=== PATIENT | female | born 1975 | race Caucasian/White ===

== ENCOUNTER 2018-01-31 15:14 | Emergency (ER) | payer BC ==
[2018-01-31 15:35] VITALS: BP 133/75
[2018-01-31] MEDS ORDERED: Naproxen TAB* 250 MG PO ONE (15:47)
--- NOTE | 2018-01-31 16:09 | RAD ---
HISTORY: pain swelling s/p fall down stairs COMPARISONS: None VIEWS: 3 , Frontal, lateral, and oblique views of the right ankle FINDINGS: BONE DENSITY: Normal. BONES: There is no displaced fracture. JOINTS: There is no arthropathy. ALIGNMENT: There is no dislocation. SOFT TISSUES: There is soft tissue swelling most pronounced along the lateral malleolus. OTHER FINDINGS: None. IMPRESSION: SOFT TISSUE SWELLING. NO ACUTE OSSEOUS INJURY. IF SYMPTOMS PERSIST, RECOMMEND REPEAT IMAGING.
--- NOTE | 2018-01-31 16:21 | UC ---
Lower Extremity/Ankle HPI - HPI Summary HPI Summary: 42-year-old female presents with right ankle pain and swelling. States she was descending stairs, missed the next last stair, and fell causing inversion injury to her right ankle. States she felt a pop at time of injury. She denies hitting her head or any loss of consciousness. Does report some mild low back pain. She has not been able to walk or bear weight on the ankle since the injury. Denies any numbness or tingling to the foot or toes. - History of Current Complaint Chief Complaint: UCLowerExtremity Stated Complaint: ANKLE INJURY Time Seen by Provider: 01/31/18 15:41 Hx Obtained From: Patient Hx Last Menstrual Period: 01/29/18 Onset/Duration: Sudden Onset Severity Currently: Moderate Pain Intensity: 7 Able to Bear Weight: No - Allergies/Home Medications Allergies/Adverse Reactions: Allergies Allergy/AdvReac Type Severity Reaction Status Date / Time No Known Allergies Allergy Verified 01/31/18 15:36 PMH/Surg Hx/FS Hx/Imm Hx Previously Healthy: Yes - denies significant past medical history - Surgical History Surgical History: Yes Surgery Procedure, Year, and Place: [facility] - 1994 [place]. D&C , 01/2013, [facility] [place]. CERVICAL POLYPECTOMY 01/2013. 06/20/14, LEFT URETERAL STENT, [facility] [place] - Family History Family History: Noncontributory - Social History Occupation: Employed Full-time Lives: With Family Alcohol Use: Occasionally Alcohol Amount: 2-3 PER WEEK Substance Use Type: None Smoking Status (MU): Never Smoked Tobacco Have You Smoked in the Last Year: No Review of Systems Constitutional: Negative Skin: Bruising - Right lateral ankle Respiratory: Negative Cardiovascular: Negative Neurovascular: Negative Musculoskeletal: Arthralgia - Right lateral ankle with swelling Is Patient Immunocompromised?: No All Other Systems Reviewed And Are Negative: Yes Physical Exam Triage Information Reviewed: Yes Appearance: Well-Appearing, Well-Nourished, Pain Distress - Mild to moderate pain Vital Signs: Initial Vital Signs Temp 99 F 01/31/18 15:30 Pulse 75 01/31/18 15:30 Resp 15 01/31/18 15:30 BP 133/75 01/31/18 15:30 Pulse Ox 100 01/31/18 15:30 Vital Signs Reviewed: Yes Neck: Positive: Supple, Nontender Respiratory: Positive: Lungs clear, Normal breath sounds Cardiovascular: Positive: RRR, No Murmur, Pulses Normal, Brisk Capillary Refill Abdomen Description: Positive: Nontender, No Organomegaly, Soft. Negative: CVA Tenderness (R), CVA Tenderness (L), Distended, Guarding Bowel Sounds: Positive: Present Musculoskeletal: Positive: Strength Intact, ROM Limited @ - Right ankle due to pain, Other: - Tenderness and swelling over the lateral malleolus. No CTLS spine tenderenss. Neurological: Positive: Alert, Other: - Sensation intact distally. Skin: Positive: Other - Ecchymosis over the right lateral malleolus Diagnostics - Radiology No standard instances Xray Interpretation: No Acute Changes Radiology Interpretation Completed By: Radiologist - SOFT TISSUE SWELLING. NO ACUTE OSSEOUS INJURY. Lower Extremity Course/Dx - Course Course Of Treatment: 42-year-old female presents with right ankle pain after slipping and falling down stairs. Exam revealed tenderness and swelling of the right lateral malleolus but no other injury. X-ray showed soft tissue swelling but no acute fracture or dislocation. Patient was placed in a stirrup splint and given crutches. Recommend nonweightbearing for next 2 days with slow progression to weight-bear as tolerated as well as symptomatic treatment including RICE, and naproxen twice a day as needed for pain. She is to follow- up with her primary care provider for recheck. Patient verbalizes understanding and agrees with plan of care. - Differential Dx/Diagnosis Differential Diagnosis/HQI/PQRI: Contusion, Fracture (Closed), Sprain Provider Diagnoses: Right ankle sprain Discharge - Sign-Out/Discharge Documenting (check all that apply): Patient Departure All imaging exams completed and their final reports reviewed: No Studies - Discharge Plan Condition: Stable Disposition: HOME Prescriptions: Naproxen [Naproxen 500 mg tab] 500 mg PO Q12HR #30 tablet Patient Education Materials: Ankle Sprain (ED), Crutch Instructions (ED), Ankle Stirrup Splint (ED) Referrals: Giles Morales MD [Primary Care Provider] - 2 Weeks (Within 2 weeks for recheck.) Additional Instructions: The x-ray was performed in the clinic today was not needed for fracture. I suspect that you have a bad sprain of your ankle. Use the stirrup splint that was applied in the clinic today until you follow up with your primary care provider. You may remove at bedtime and to shower but should wear at all other times. Take naproxen 1 tablet every 12 hours as needed for pain. Be sure to take this with food. Rest the ankle as much as possible. We have provided she was some crutches to use. You should be nonweightbearing for the next couple of days. You may then start to slowly bear weight as tolerated. Apply ice to the affected area for 15-20 minutes 3-4 times a day to help reduce swelling. Keep the foot elevated in order to reduce swelling. Follow-up with your primary care provider in the next 2 weeks for recheck especially if symptoms are not improving. Seek immediate medical attention in the emergency room if you have pain that is not managed with the pain medication, have increased swelling, or develop any numbness or tingling in the foot or toes. - Billing Disposition and Condition Condition: STABLE Disposition: Home
== END 2018-01-31 16:40 | disposition home or self-care (01) ==
LOC: UCEAST 15:14
DX: S93.401A Sprain of unspecified ligament of right ankle, initial encounter (principal); W10.9XXA Fall (on) (from) unspecified stairs and steps, initial encounter; Y92.9 Unspecified place or not applicable; M54.5 Low back pain
CPT/HCPCS: 99212; A9270-GY; G0463

== ENCOUNTER 2021-09-05 10:48 | Inpatient (IN) ==
[2021-09-05] MEDS ORDERED: NS 0.9% 1000 ml BAG 1,000 ML IV ONE (11:01)
[2021-09-05 11:14] LABS: ABS Eosinophils 0.1 10^3/ul (0-0.6); ABS Lymphocytes 1.7 10^3/ul (1.0-4.8); ABS Monocytes 0.6 10^3/ul (0-0.8); ABS Neutrophils 2.1 10^3/ul (1.5-7.7); Eosinophil % 2.4 %; Hematocrit 41 % (35-47); Hemoglobin 13.7 g/dL (12.0-16.0); Lymphocyte % 37.1 %; Mean Corpuscular HGB Conc 33 g/dL (31-36); Mean Corpuscular Hemoglobin 31 pg (27-31); Mean Corpuscular Volume 92 fL (80-97); Mean Platelet Volume 8.9 fL (7.4-10.4); Platelet Count 197 10^3/uL (150-450); Red Blood Count 4.47 10^6 /uL (3.70-4.87); Red Cell Distribution Width 13 % (10-15); White Blood Count 4.5 10^3/uL (3.5-10.8)
[2021-09-05] MEDS ORDERED: Iodixanol (CONTRAST) 320 MG/ML 100 ML SDV IV ONE (11:19)
[2021-09-05 11:28] LABS: Activated Partial Thrombo Time 36.5 seconds (26.0-38.0); INR 1.04 (0.86-1.15)
[2021-09-05 11:53] LABS: Albumin 4.3 g/dL (3.2-5.2); Albumin/Globulin Ratio 1.3 (1-3); Calcium 9.8 mg/dL (8.6-10.3); Globulin 3.4 g/dL (2-4); HDL Cholesterol 51.4 mg/dL; Potassium 3.8 mmol/L (3.5-5.0); Total Bilirubin 0.5 mg/dL (0.2-1.0); Total Protein 7.7 g/dL (6.4-8.9)
[2021-09-05 12:36] LABS: High Sensitivity Troponin 1 Hr 3 pg/mL (<15)
[2021-09-05 18:45] LABS: TSH Ultra Thyroid Stim Horm 0.94 mcIU/mL (0.34-5.60)
[2021-09-05 19:14] LABS: Fibrinogen 423.4 mg/dL (110.8-404.3)
[2021-09-05] MEDS: Enoxaparin 40 MG/0.4 ML SYR SUBCUT SCH (21:56)
[2021-09-06 07:28] LABS: eGFR CKD-EPI 83.3 (>60)
[2021-09-06] MEDS ORDERED: Butalb/Acetamin/Caff TAB 325-50-40MG PO PRN (11:35)
[2021-09-06] MEDS: Enoxaparin 40 MG/0.4 ML SYR SUBCUT SCH (17:52)
[2021-09-07] MEDS ORDERED: Fluticasone NASAL SPRAY 50MCG 16 gm SPRAY BTL BOTH NARES SCH (09:00)
[2021-09-07] MEDS ORDERED: Butalb/Acetamin/Caff TAB 325-50-40MG PO ONE (12:30)
[2021-09-07 14:13] LABS: DRVVT Screen Ratio 1.13 ratio (<1.20); LAC APTT 33 sec (25 - 37); LAC INR 1.1 (0.9-1.1); Prothrombin Time(LAC) 11.8 sec (9.4 - 12.5)
[2021-09-07 20:24] VITALS: BP 115/67
[2021-09-07] MEDS: Enoxaparin 40 MG/0.4 ML SYR SUBCUT SCH (21:04)
== END 2021-09-07 17:50 | disposition home or self-care (01) | DRG 47 ==
LOC: ED 10:48 → SUATTDRO 14:03 → EDHOLD 14:24 → MEDTELE 16:15
PROVIDERS: ADMIT Internal Medicine; ATTEND Internal Medicine